=== PATIENT | male | born 1990 | race Caucasian/White ===

== ENCOUNTER 2021-09-10 02:35 | Emergency (ER) | payer MEDICAID ==
[2021-09-10 02:47] VITALS: BP 132/80
--- NOTE | 2021-09-10 02:47 | ED Physician Documentation ---
PD HPI ABD PAIN - Stated complaint Stated Complaint: R ABD PX - Chief complaint Chief Complaint: Abd Pain - History obtained from History obtained from: Patient - History of Present Illness Timing - onset: Yesterday Timing - details: Abrupt onset, Waxing and waning Pain level max: 9 Pain level now: 2 Quality: Pain Location: RUQ, Periumbilical, RLQ Improved by: BM (after arrival but shortly before this H+P, patient says he had diarrheal stool and felt "much better" (per patient)) Worsened by: Moving Associated symptoms: Diarrhea. No: Fever, Nausea, Vomiting, Constipation Similar symptoms before: Has not had sx before Recently seen: Not recently seen - Additional information Additional information: c/o diarrhea and abdominal cramping 1-2 days. The abdominal pain/cramping is predominantly right-sided although he says he feels much improved after having a diarrheal stool shortly before this H+P. Denies h/o similar symptoms. He completed a course of augmentin that was prescribed 08/24 for a dental infection. Review of Systems Constitutional: denies: Fever, Chills, Sweats Cardiac: reports: Reviewed and negative Respiratory: reports: Reviewed and negative GI: reports: Abdominal Pain, Diarrhea. denies: Abdominal Swelling, Nausea, Vomiting, Constipation, Hematemesis, Bloody / black stool : denies: Dysuria, Frequency PD PAST MEDICAL HISTORY - Past Medical History Past Medical History: No - Past Surgical History Past Surgical History: No - Present Medications Home Medications: Ambulatory Orders Medication Instructions Recorded Confirmed Diphenoxylate/Atropine [Lomotil] 1 each PO QID PRN #10 tablet 09/10/21 - Allergies Allergies/Adverse Reactions: Allergies Allergy/AdvReac Type Severity Reaction Status Date / Time No Known Drug Allergies Allergy Verified 09/10/21 02:45 PD ED PE NORMAL - Vitals Vital signs reviewed: Yes - General General: Alert and oriented X 3, No acute distress, Well developed/nourished - HEENT HEENT: Moist mucous membranes - Cardiac Cardiac: RRR, No murmur - Respiratory Respiratory: No respiratory distress, Clear bilaterally - Abdomen Abdomen: Normal bowel sounds, Soft, Non tender, Non distended - Back Back: No CVA TTP - Derm Derm: Normal color, Warm and dry Results - Vitals Vitals: Vital Signs - 24 hr 09/10/21 02:40 Temperature 36.5 C Heart Rate 96 Respiratory 18 Rate Blood Pressure 132/80 H O2 Saturation 100 Oxygen O2 Source Room air - Labs Labs: Laboratory Tests 09/10/21 09/10/21 09/10/21 02:51 03:20 03:20 WBC 10.3 RBC 5.47 Hgb 15.8 Hct 49.0 MCV 89.6 MCH 28.9 MCHC 32.2 RDW 13.2 Plt Count 339 MPV 8.9 Neut # (Auto) 6.5 Lymph # (Auto) 2.5 Rich # (Auto) 1.0 Eos # (Auto) 0.2 Baso # (Auto) 0.1 Absolute Nucleated RBC 0.00 Nucleated RBC % 0.0 Sodium 136 Potassium 3.5 Chloride 101 Carbon Dioxide 26 Anion Gap 9.0 BUN 19 Creatinine 0.8 Estimated GFR (MDRD) 112 Glucose 91 Calcium 8.7 Total Bilirubin 0.4 AST 18 ALT 21 Alkaline Phosphatase 96 Total Protein 7.2 Albumin 3.9 Globulin 3.3 Albumin/Globulin Ratio 1.2 Lipase 27 Urine Color YELLOW Urine Clarity CLEAR Urine pH 6.0 Ur Specific [place] >=1.030 H Urine Protein NEGATIVE Urine Glucose (UA) NEGATIVE Urine Ketones NEGATIVE Urine Occult Blood NEGATIVE Urine Nitrite NEGATIVE Urine Bilirubin NEGATIVE Urine Urobilinogen 0.2 (NORMAL) Ur Leukocyte Esterase NEGATIVE Ur Microscopic Review NOT INDICATED Urine Culture Comments NOT INDICATED Stl C. diff Tox B Gene 09/10/21 03:38 WBC RBC Hgb Hct MCV MCH MCHC RDW Plt Count MPV Neut # (Auto) Lymph # (Auto) Rich # (Auto) Eos # (Auto) Baso # (Auto) Absolute Nucleated RBC Nucleated RBC % Sodium Potassium Chloride Carbon Dioxide Anion Gap BUN Creatinine Estimated GFR (MDRD) Glucose Calcium Total Bilirubin AST ALT Alkaline Phosphatase Total Protein Albumin Globulin Albumin/Globulin Ratio Lipase Urine Color Urine Clarity Urine pH Ur Specific [place] Urine Protein Urine Glucose (UA) Urine Ketones Urine Occult Blood Urine Nitrite Urine Bilirubin Urine Urobilinogen Ur Leukocyte Esterase Ur Microscopic Review Urine Culture Comments Stl C. diff Tox B Gene NEGATIVE PD MEDICAL DECISION MAKING - ED course Complexity details: reviewed results, re-evaluated patient, considered differential, d/w patient ED course: presents with abdominal cramping pain and diarrhea x 2 days. He is nontender on abdominal exam, afebrile, and normal blood tests. His UA is only notable for >1.030 specific gravity which is likely due to dehydration from the diarrhea. He provides a stool sample which is brown but liquid, negative for c.diff. On reevaluation after IV fluids, test results d/w patient. He remains nontender (on reexam) and he reports feeling better after the IV fluids. given lomotil in ED prior to d/c and rx for same transmitted to his pharmacy of choice. return precautions discussed. Departure - Departure Disposition: 01 Home, Self Care Clinical Impression: Diarrhea Qualifiers: Diarrhea type: unspecified type Qualified Code(s): R19.7 - Diarrhea, unspecified Condition: Good Instructions: ED Vomiting Diarrhea Nonspecific Ad Follow-Up: [facility] [Provider Group] Prescriptions: Diphenoxylate/Atropine [Lomotil] 1 each PO QID PRN #10 tablet PRN Reason: Diarrhea Comments: The cause of your symptoms is not apparent at this time. Your test results are all unremarkable. A prescription for an anti-diarrheal medication has been electronically submitted to [facility] pharmacy in [place]. Discharge Date/Time: 09/10/21 05:52
[2021-09-10 02:59] LABS: BILIRUBIN,URINE NEGATIVE (NEGATIVE); GLUCOSE, URINE (UA) NEGATIVE (NEGATIVE); KETONES,URINE (UA) NEGATIVE (NEGATIVE); LEUKOCYTE ESTERASE, URINE NEGATIVE (NEGATIVE); NITRITE,URINE NEGATIVE (NEGATIVE); OCCULT BLOOD,URINE NEGATIVE (NEGATIVE); PROTEIN,URINE NEGATIVE (NEGATIVE); UROBILINOGEN,URINE 0.2 (NORMAL) E.U./dL (NORMAL)
[2021-09-10 03:00] LABS: CLARITY,URINE CLEAR (CLEAR)
[2021-09-10] MEDS ORDERED: SODIUM CHLORIDE 0.9% 1,000 ML IV STA (03:22)
[2021-09-10 03:24] LABS: BASOPHILS # (AUTO) 0.1 10^3/uL (0.0-0.1); BASOPHILS % (AUTO) 0.6 %; EOSINOPHILS # (AUTO) 0.2 10^3/uL (0.0-0.7); HGB - HEMOGLOBIN 15.8 g/dL (14.0-18.0); LYMPHOCYTES # (AUTO) 2.5 10^3/uL (1.5-3.5); MEAN CORPUSCULAR HEMOGLOBIN 28.9 pg (27.0-31.0); MEAN CORPUSCULAR HGB CONC 32.2 g/dL (32.0-36.0); MEAN CORPUSCULAR VOLUME 89.6 fL (80.0-94.0); MEAN PLATELET VOLUME 8.9 fL (7.4-11.4); MONOCYTES % (AUTO) 9.9 %; NEUTROPHILS # (AUTO) 6.5 10^3/uL (1.5-6.6); NEUTROPHILS % (AUTO) 63.1 %; PLT - PLATELET COUNT 339 10^3/uL (130-450); RED BLOOD COUNT 5.47 10^6/uL (4.70-6.10); RED CELL DISTRIBUTION WIDTH 13.2 % (12.0-15.0); WHITE BLOOD COUNT 10.3 x10^3/uL (4.8-10.8)
[2021-09-10 03:37] LABS: ALBUMIN 3.9 g/dL (3.2-5.5); ALBUMIN/GLOBULIN RATIO 1.2 (1.0-2.2); BILIRUBIN,TOTAL 0.4 mg/dL (0.2-1.0); CALCIUM 8.7 mg/dL (8.5-10.3); CREATININE 0.8 mg/dL (0.6-1.2); POTASSIUM 3.5 mmol/L (3.5-5.0); TOTAL PROTEIN 7.2 g/dL (6.7-8.2)
[2021-09-10] MEDS ORDERED: IOVERSOL 320 100 ML VIAL IVP ONE (03:45)
[2021-09-10] MEDS ORDERED: DIPHENOX/ATROPINE 2.5/0.025 MG TABLET PO STA (05:34)
== END 2021-09-10 05:52 | disposition home or self-care (01) ==
LOC: ED 02:35
DX: R19.7 Diarrhea, unspecified (principal)
CPT/HCPCS: 36415; 80053; 81003; 83690; 85025; 87493; 99282; 99284; A9270; 81001; 87086

== ENCOUNTER 2021-11-28 03:04 | Emergency (ER) | payer MEDICAID ==
[2021-11-28] MEDS ORDERED: SODIUM CHLORIDE 0.9% 1,000 ML IV STA ×2 (03:34→07:17)
--- NOTE | 2021-11-28 04:00 | ED Physician Documentation ---
History of Present Illness - Stated complaint Stated Complaint: BACK PAIN - Chief complaint Chief Complaint: Back Pain - History obtained from History obtained from: Patient - Additonal information Additional information: Patient is a 31-year-old male with no significant past medical history presenting for evaluation of low back pain at that he noticed around 10 PM as he was going to bed. Pain is sharp. It does not radiate. Is worse with movement and palpation. He reports having difficulty getting into a comfortable position. He denies any recent trauma or previous injury. He is also noted to have a low-grade fever at triage. Per patient, he has had a fever for the last 2 to 3 days with a cough. He reports feeling Nauseous and having an episode of emesis earlier today. He denies bowel or bladder incontinence. He denies chest pain, headache, trouble breathing. He denies dysuria or hematuria. He denies IV drug use. Review of Systems Constitutional: reports: Fever Nose: denies: Congestion Throat: denies: Sore throat Cardiac: denies: Chest pain / pressure Respiratory: reports: Cough. denies: Dyspnea GI: reports: Abdominal Pain, Nausea, Vomiting : denies: Dysuria, Hematuria Skin: denies: Rash Musculoskeletal: reports: Back pain Neurologic: denies: Headache, Head injury PD PAST MEDICAL HISTORY - Past Surgical History Past Surgical History: No - Present Medications Home Medications: Ambulatory Orders Medication Instructions Recorded Confirmed Diphenoxylate/Atropine [Lomotil] 1 each PO QID PRN #10 tablet 09/10/21 - Allergies Allergies/Adverse Reactions: Allergies Allergy/AdvReac Type Severity Reaction Status Date / Time No Known Drug Allergies Allergy Verified 11/28/21 03:23 - Social History Does the pt smoke?: Yes Smoking Status: Current every day smoker Does the pt drink ETOH?: No Does the pt have substance abuse?: No - Immunizations Immunizations are current?: Yes - POLST Patient has POLST: No PD ED PE NORMAL - General General: Alert and oriented X 3, No acute distress, Well developed/nourished - HEENT HEENT: Atraumatic, Moist mucous membranes - Neck Neck: Supple, no meningeal sign - Cardiac Cardiac: RRR, No murmur, Strong equal pulses - Respiratory Respiratory: No respiratory distress, Clear bilaterally - Abdomen Abdomen: Normal bowel sounds, Soft, Non distended, Other (Suprapubic tenderness to palpation) - Back Back: No: No spinal TTP (Midline lumbar tenderness to palpation with no erythema, swelling or bony step-offs) - Derm Derm: Warm and dry, Other (Psoriatic rash to all extremities, no erythema overlying bilateral hips or spine) - Extremities Extremities: No deformity, Normal ROM s pain, Other (Pedal pulses intact) - Neuro Neuro: No motor deficit, No sensory deficit Eye Opening: Spontaneous Motor: Obeys Commands Verbal: Oriented GCS Score: 15 Results - Vitals Vitals: Vital Signs - 24 hr 11/28/21 11/28/21 11/28/21 03:12 05:00 07:36 Temperature 37.9 C 36.6 C Heart Rate 98 108 H 69 Respiratory 19 18 18 Rate Blood Pressure 140/88 H 124/83 H 119/63 O2 Saturation 98 99 94 11/28/21 11/28/21 11/28/21 08:08 13:50 13:53 Temperature 37.3 C 36.8 C Heart Rate 73 85 88 Respiratory 20 20 16 Rate Blood Pressure 129/78 143/86 H 142/91 H O2 Saturation 95 98 100 Oxygen O2 Source Room air - EKG (time done) 0359 Rate: Rate (enter#) (81) [place]: Normal Ischemia: ST elevation c/w repol. No: ST elevation c/w ischemia Compare to prior EKG: Old EKG unavailable - Labs Labs: Laboratory Tests 11/28/21 11/28/21 11/28/21 03:39 03:59 03:59 WBC 12.0 H RBC 5.19 Hgb 15.1 Hct 46.3 MCV 89.2 MCH 29.1 MCHC 32.6 RDW 13.1 Plt Count 289 MPV 9.6 Neut # (Auto) 10.8 H Lymph # (Auto) 0.2 L Yell # (Auto) 0.9 Eos # (Auto) 0.0 Baso # (Auto) 0.0 Absolute Nucleated RBC 0.00 Nucleated RBC % 0.0 Sodium 136 Potassium 3.5 Chloride 101 Carbon Dioxide 26 Anion Gap 9.0 BUN 19 Creatinine 1.0 Estimated GFR (MDRD) 87 L Glucose 122 H Lactic Acid Calcium 8.9 Total Bilirubin 0.9 AST 27 ALT 28 Alkaline Phosphatase 94 Total Protein 7.6 Albumin 4.2 Globulin 3.4 Albumin/Globulin Ratio 1.2 Lipase 21 L Urine Color Urine Clarity Urine pH Ur Specific [place] Urine Protein Urine Glucose (UA) Urine Ketones Urine Occult Blood Urine Nitrite Urine Bilirubin Urine Urobilinogen Ur Leukocyte Esterase Ur Microscopic Review Urine Culture Comments Nasal Adenovirus (PCR) NOT DETECTED Nasal B. parapertussis DNA (PCR) NOT DETECTED Nasal Coronavir 229E PCR NOT DETECTED Nasal Coronavir HKU1 PCR NOT DETECTED Nasal Coronavir NL63 PCR NOT DETECTED Nasal Coronavir OC43 PCR NOT DETECTED Nasal Enterovir/Rhinovir PCR NOT DETECTED Nasal Influenza B PCR NOT DETECTED Nasal Influenza A PCR NOT DETECTED Nasal Parainfluen 1 PCR NOT DETECTED Nasal Parainfluen 2 PCR NOT DETECTED Nasal Parainfluen 3 PCR NOT DETECTED Nasal Parainfluen 4 PCR NOT DETECTED Nasal RSV (PCR) NOT DETECTED Nasal B.pertussis DNA PCR NOT DETECTED Nasal C.pneumoniae (PCR) NOT DETECTED Yosef Human Metapneumo PCR NOT DETECTED Nasal M.pneumoniae (PCR) NOT DETECTED Nasal SARS-CoV-2 (PCR) NOT DETECTED Urine Opiates Screen Ur Oxycodone Screen Urine Methadone Screen Ur Propoxyphene Screen Ur Barbiturates Screen Ur Tricyclics Screen Ur Phencyclidine Scrn Ur Amphetamine Screen U Methamphetamines Scrn U Benzodiazepines Scrn Urine Cocaine Screen U Cannabinoids Screen 11/28/21 11/28/21 03:59 05:44 WBC RBC Hgb Hct MCV MCH MCHC RDW Plt Count MPV Neut # (Auto) Lymph # (Auto) Yell # (Auto) Eos # (Auto) Baso # (Auto) Absolute Nucleated RBC Nucleated RBC % Sodium Potassium Chloride Carbon Dioxide Anion Gap BUN Creatinine Estimated GFR (MDRD) Glucose Lactic Acid 1.7 Calcium Total Bilirubin AST ALT Alkaline Phosphatase Total Protein Albumin Globulin Albumin/Globulin Ratio Lipase Urine Color YELLOW Urine Clarity CLEAR Urine pH 8.5 H Ur Specific [place] 1.020 Urine Protein NEGATIVE Urine Glucose (UA) NEGATIVE Urine Ketones NEGATIVE Urine Occult Blood NEGATIVE Urine Nitrite NEGATIVE Urine Bilirubin NEGATIVE Urine Urobilinogen 1 (NORMAL) Ur Leukocyte Esterase NEGATIVE Ur Microscopic Review NOT INDICATED Urine Culture Comments NOT INDICATED Nasal Adenovirus (PCR) Nasal B. parapertussis DNA (PCR) Nasal Coronavir 229E PCR Nasal Coronavir HKU1 PCR Nasal Coronavir NL63 PCR Nasal Coronavir OC43 PCR Nasal Enterovir/Rhinovir PCR Nasal Influenza B PCR Nasal Influenza A PCR Nasal Parainfluen 1 PCR Nasal Parainfluen 2 PCR Nasal Parainfluen 3 PCR Nasal Parainfluen 4 PCR Nasal RSV (PCR) Nasal B.pertussis DNA PCR Nasal C.pneumoniae (PCR) Yosef Human Metapneumo PCR Nasal M.pneumoniae (PCR) Nasal SARS-CoV-2 (PCR) Urine Opiates Screen POSITIVE H Ur Oxycodone Screen NEGATIVE Urine Methadone Screen NEGATIVE Ur Propoxyphene Screen NEGATIVE Ur Barbiturates Screen NEGATIVE Ur Tricyclics Screen NEGATIVE Ur Phencyclidine Scrn NEGATIVE Ur Amphetamine Screen POSITIVE H U Methamphetamines Scrn POSITIVE H U Benzodiazepines Scrn NEGATIVE Urine Cocaine Screen NEGATIVE U Cannabinoids Screen POSITIVE H PD MEDICAL DECISION MAKING - ED course Complexity details: re-evaluated patient ED course: Patient presenting for evaluation of low back pain for 1 day that is atraumatic in nature. He is noted to have a low-grade fever upon arrival and endorses feeling feverish for the last several days. He denies IV drug use. He does have tenderness to the low lumbar spine. Labs obtained with mild leukocytosis. CT imaging obtained without significant findings. Urine negative for infection. UDS is positive for Methamphetamine and cannabis. Unclear of opiates is from morphine patient had received in ED.Respiratory panel is negative. MRI of lumbar spine with contrast ordered to evaluate for epidural abscess. Patient is aware of plan. He has no neurologic deficits noted on exam. He will be signed out to oncoming ED physician, Dr. Hayden. 0605 - Reviewed results including labs and CT image. Discussed plan for MRI this morning when tech is available. 0700 - Pt upset about not being allowed PO intake, pulled out IV and wanting to leave stating "they never find anything wrong". Explained that MRI is pending and that if he has a spinal abscess, that would require surgery and we do not want his stomach to be full should he need a procedure. Explained risks of leaving prior to MRI which could include or paralysis should he have a spinal abscess or other pathology. Pt allowed some ice chips and explained that we would continue to hydrate him with IV fluids and help with his pain. Pt agreeable and climbed back into bed. Departure - Departure Disposition: 01 Home, Self Care Clinical Impression: Back pain Condition: Stable Instructions: ED Neck Back Pain General Comments: Your MRI looks good. There is no evidence of any acute or emergent condition causing your pain and in fact, there were really no abnormalities of your MRI at all. It is not clear why you are having this pain but most likely, will blow over on its own. Please follow-up with your primary doctor if your pain continues. You may use [id number] medications to help with this. Your drug screen today was found to be positive for both methamphetamine and marijuana. Using drugs such as meth does increase your risk for a bad infection in your spine, spinal cord, or brain, which can leave you paralyzed, brain- damaged, or . Please consider getting help with this. Discharge Date/Time: 11/28/21 14:08
[2021-11-28 04:11] LABS: BASOPHILS % (AUTO) 0.3 %; HCT - HEMATOCRIT 46.3 % (42.0-52.0); HGB - HEMOGLOBIN 15.1 g/dL (14.0-18.0); LYMPHOCYTES # (AUTO) 0.2 10^3/uL (1.5-3.5); LYMPHOCYTES % (AUTO) 1.8 %; MEAN CORPUSCULAR HEMOGLOBIN 29.1 pg (27.0-31.0); MEAN CORPUSCULAR HGB CONC 32.6 g/dL (32.0-36.0); MEAN CORPUSCULAR VOLUME 89.2 fL (80.0-94.0); MEAN PLATELET VOLUME 9.6 fL (7.4-11.4); MONOCYTES # (AUTO) 0.9 10^3/uL (0.0-1.0); MONOCYTES % (AUTO) 7.1 %; NEUTROPHILS # (AUTO) 10.8 10^3/uL (1.5-6.6); NEUTROPHILS % (AUTO) 90.2 %; PLT - PLATELET COUNT 289 10^3/uL (130-450); RED BLOOD COUNT 5.19 10^6/uL (4.70-6.10); RED CELL DISTRIBUTION WIDTH 13.1 % (12.0-15.0)
[2021-11-28 04:21] LABS: ALBUMIN 4.2 g/dL (3.2-5.5); ALBUMIN/GLOBULIN RATIO 1.2 (1.0-2.2); BILIRUBIN,TOTAL 0.9 mg/dL (0.2-1.0); CALCIUM 8.9 mg/dL (8.5-10.3); POTASSIUM 3.5 mmol/L (3.5-5.0); TOTAL PROTEIN 7.6 g/dL (6.7-8.2)
[2021-11-28] MEDS ORDERED: ONDANSETRON 4 MG/2 ML VIAL IVP STA (04:32)
[2021-11-28] MEDS ORDERED: MORPHINE 2 MG/ML CARPUJECT IVP STA ×2 (04:55→07:17)
[2021-11-28 05:46] LABS: MUDS CUTOFF CONCENTRATIONS CUTOFF CONC BELOW:
[2021-11-28 05:56] LABS: BILIRUBIN,URINE NEGATIVE (NEGATIVE); GLUCOSE, URINE (UA) NEGATIVE (NEGATIVE); KETONES,URINE (UA) NEGATIVE (NEGATIVE); LEUKOCYTE ESTERASE, URINE NEGATIVE (NEGATIVE); NITRITE,URINE NEGATIVE (NEGATIVE); OCCULT BLOOD,URINE NEGATIVE (NEGATIVE); PH,URINE 8.5 PH (5.0-7.5); PROTEIN,URINE NEGATIVE (NEGATIVE); UROBILINOGEN,URINE 1 (NORMAL) E.U./dL (NORMAL)
[2021-11-28 05:57] LABS: B. PARAPERTUSSIS- RESP PCR PAN NOT DETECTED; B. PERTUSSIS- RESP PCR PANEL NOT DETECTED; C. PNEUMONIAE- RESP PCR PANEL NOT DETECTED; CORONAVIRUS 229E-RESP PCR NOT DETECTED; CORONAVIRUS HKU1-RESP PCR NOT DETECTED; CORONAVIRUS NL63-RESP PCR NOT DETECTED; CORONAVIRUS OC43-RESP PCR NOT DETECTED; HUMAN METAPNEUMOVIRUS NOT DETECTED; INFLUENZA A- RESP PCR PANEL NOT DETECTED; INFLUENZA B - RESP PCR PANEL NOT DETECTED; M. PNEUMONIAE- RESP PCR PANEL NOT DETECTED; PARAINFLUENZA VIRUS 1 NOT DETECTED; PARAINFLUENZA VIRUS 2 NOT DETECTED; PARAINFLUENZA VIRUS 3 NOT DETECTED; PARAINFLUENZA VIRUS 4 NOT DETECTED; RHINOVIRUS/ENTEROVIRUS NOT DETECTED; RSV- RESP PCR PANEL NOT DETECTED; SARS-CoV-2 -RESP PCR PANEL NOT DETECTED
[2021-11-28 05:59] LABS: CLARITY,URINE CLEAR (CLEAR)
[2021-11-28 06:16] LABS: AMPHETAMINE SCREEN,URINE POSITIVE (NEGATIVE); BARBITURATE SCREEN,UR NEGATIVE (NEGATIVE); BENZODIAZEPINES SCREEN, URINE NEGATIVE (NEGATIVE); COCAINE SCREEN URINE NEGATIVE (NEGATIVE); METHADONE SCREEN, URINE NEGATIVE (NEGATIVE); METHAMPHETAMINES SCREEN, URINE POSITIVE (NEGATIVE); OPIATE SCREEN, URINE POSITIVE (NEGATIVE); OXYCODONE SCREEN, URINE NEGATIVE (NEGATIVE); PROPOXYPHENE SCREEN, URINE NEGATIVE (NEGATIVE); THC CANNABINOID SCREEN, URINE POSITIVE (NEGATIVE); TRICYCLIC ANTIDEPRESSANT,URINE NEGATIVE (NEGATIVE)
--- NOTE | 2021-11-28 10:03 | CT Report ---
PROCEDURE: Abdomen/Pelvis WO INDICATIONS: back pain/lower abd pain TECHNIQUE: Noncontrast 5 mm thick sections acquired from the diaphragms to the symphysis. 5 mm coronal and sagi ttal reformats were then performed. For radiation dose reduction, the following was used: automated exposure control, adjustment of mA and/or kV according to patient size. COMPARISON: none FINDINGS: Image quality: Excellent. ABDOMEN: Lung bases: Lung bases are clear. Heart size is normal. Solid organs: Liver and spleen are normal in size. Gallbladder is unremarkable. Pancreas is normal in contours. No adrenal nodules. Kidneys are normal in size, without hydronephrosis. 6 mm left elder perior renal pole calculus, Hounsfield units measure 535. Peritoneum and bowel: Unenhanced bowel loops demonstrate normal wall thickness and caliber. No free fluid or air. Nodes and vessels: No retroperitoneal or mesenteric adenopathy by size criteria. Aorta and inferior vena cava are normal in caliber. Miscellaneous: No ventral hernias. PELVIS: Genitourinary: Bladder wall thickness is normal. Miscellaneous: No inguinal hernias or adenopathy. Bones: No suspicious bony lesions. No vertebral body compression fractures. IMPRESSION: 6 m nonobstructing left renal calculus. The above findings are concordant with preliminary report. Reviewed by: Irena Grossman MD on 11/28/2021 10:01 AM PDT Approved by: Irena Grossman MD on 11/28/2021 10:01 AM PDT Station ID: [id number]
--- NOTE | 2021-11-28 10:04 | XRAY Report ---
PROCEDURE: Chest 1 View X-Ray INDICATIONS: fever/cough TECHNIQUE: One view of the chest was acquired. COMPARISON: none FINDINGS: Surgical changes and devices: None. Lungs and pleura: No pleural effusions or pneumothorax. Lungs are clear. Mediastinum: Mediastinal contours appear normal. Heart size is normal. Bones and chest wall: No suspicious bony lesions. Overlying soft tissues appear unremarkable. IMPRESSION: No acute pulmonary process. The above findings are concordant with preliminary report. Reviewed by: Irena Grossman MD on 11/28/2021 10:02 AM PDT Approved by: Irena Grossman MD on 11/28/2021 10:02 AM PDT Station ID: [id number]
[2021-11-28] MEDS ORDERED: GADOBUTROL 7.5 MMOL/7.5 ML VIAL ONE (11:24)
--- NOTE | 2021-11-28 13:04 | MRI Report ---
PROCEDURE: Lumbar Spine W/WO INDICATIONS: FEVER, LOW BACK PAIN, EVAL FOR ABSCESS CONTRAST: IV CONTRAST: Gadavist ml: 7.5 TECHNIQUE: Noncontrast sagittal T1 spin echo and T2 fast spin echo, sagittal STIR, axial T1 and T2 fast spin ech o through the lumbar spine. In cases with scoliosis, additional coronal T2 fast spin echo may be per formed. After the administration of contrast, sagittal and axial T1 spin echo with fat saturation th rough the lumbar spine. COMPARISON: None. FINDINGS: Normal lumbar vertebral body height and alignment. No suspicious focal marrow signal abnormality. No bone marrow edema. No abnormal fluid signal within the intervertebral disc spaces. Small disc protrus ion in the left paracentral and subarticular zone at L5-S1 with displacement of the descending left S 1 nerve roots. No significant degenerative changes otherwise. No abnormal fluid signal in the prevert ebral or paraspinous soft tissues. Normal position and appearance of the conus. No pathologic enhance ment. IMPRESSION: No findings of discitis-osteomyelitis or other acute abnormality. Displacement of the descending left S1 nerve roots by shallow disc protrusion in the left subarticula r zone at L5-S1. Correlate for any S1 radicular symptoms. Reviewed by: Tej Albert MD on 11/28/2021 1:02 PM PDT Approved by: Tej Albert MD on 11/28/2021 1:02 PM PDT Station ID: [id number]
--- NOTE | 2021-11-28 13:11 | ED Physician Documentation ---
ED Addendum - Addendum Addendum: 11/28/21 13:09 The patient was signed out to me at change of shift by Dr. Holland, after presenting to the emergency department for low back pain, low-grade fever, being found to have leukocytosis and some point spinal tenderness on exam. At the time of signout, he was pending an MRI of the low spine after drug screen showed positivity for methamphetamines. MRI was performed and negative. The patient was counseled regarding symptomatic management at home as well as the need to get help with his drug use. Final impression: 1. Low back pain 2. Methamphetamine abuse Disposition: Home in stable and improved condition.
[2021-11-28 13:55] VITALS: BP 142/91
[2021-11-28] MEDS ORDERED: GADOBUTROL 7.5 MMOL/7.5 ML VIAL IVP ONE (16:59)
== END 2021-11-28 14:08 | disposition home or self-care (01) ==
LOC: ED 03:04
DX: M54.50 Low back pain, unspecified (principal); F15.10 Other stimulant abuse, uncomplicated; F17.200 Nicotine dependence, unspecified, uncomplicated
CPT/HCPCS: 36415; 71045; 72158; 74176; 80053; 80306; 81003; 83605; 83690; 85025; 87040; 87633; 93005; 96374; 96375; 96376; 99284; A9585; 81001; 87086